=== PATIENT | female | born 2000 | race Caucasian/White ===

== ENCOUNTER 2020-01-22 22:31 | Outpatient (CLI) | payer OTHER ==
[2020-01-22 23:04] LABS: APPEARANCE,URINE SLIGHTLY-CLOUDY; BILIRUBIN,URINE NEGATIVE (NEGATIVE); COLOR,URINE YELLOW; GLUCOSE, URINE NEGATIVE (NEGATIVE); KETONES,URINE NEGATIVE (NEGATIVE); LEUKOCYTE ESTERASE,URINE NEGATIVE (NEGATIVE); NITRITE,URINE NEGATIVE (NEGATIVE); PROTEIN,URINE NEGATIVE (NEGATIVE); URINE SPECIFIC GRAVITY 1.019; UROBILINOGEN,URINE NEGATIVE mg/dL (<2.0)
--- NOTE | 2020-01-22 23:56 | Non Stress Test Report ---
Non Stress Test Datetime Report Generated by CPN: 01/22/2020 23:55 DEMOGRAPHIC EGA NST: 35.3 INDICATION Indication for Study (NST) Other: GA > 32 weeks VITAL SIGNS Temperature - NST: 97.6 Pulse - NST: 127 RESP - NST: 17 NBPSYS NST: 119 NBPDIA NST: 56 URINE RESULTS Urine Protein, NST: Negative Urine Ketones - NST: Negative Urine Glucose - NST: Negative Urine Blood - NST: Negative MONITORING Monitor Explained: Monitor Explained; Test Explained; Patient Verbalized Understanding Time on Monitor: 01/22/2020 22:52 Time off Monitor: 01/22/2020 23:37 NST INTERVENTIONS NST Interventions: PO Hydration; Reposition Patient Physician Notified NST: Dr. Regis BABY A: [id number] BABY A Movement : Present Contraction Frequency : x 1 FHR Baseline : 145 Accelerations : 15X15 Decelerations : None Variability : Moderate 6-25bpm NST Review: Meets Criteria for Reactive NST NST Review and Verified By : B. Ring RN NST Results: Reactive NST REPORT Report Trigger: Send Report
[2020-01-22] MEDS ORDERED: HYDROXYZINE PAMOATE 50 MG CAPSULE PO ONE (23:59)
[2020-01-23 00:16] LABS: URINE AMPHETAMINES SCREEN NEGATIVE; URINE BARBITURATES SCREEN NEGATIVE; URINE BENZODIAZEPINES SCREEN NEGATIVE; URINE COCAINE SCREEN NEGATIVE; URINE MARIJUANA (THC) SCREEN NEGATIVE; URINE METHADONE SCREEN NEGATIVE; URINE PHENCYCLIDINE SCREEN NEGATIVE
== END 2020-01-22 23:45 | disposition home or self-care (01) ==
LOC: LC 22:31
PROVIDERS: ATTEND Obstetrics & Gynecology
DX: O47.1 False labor at or after 37 completed weeks of gestation (principal); Z3A.35 35 weeks gestation of pregnancy
CPT/HCPCS: 59025; 80307; 81001

== ENCOUNTER 2020-02-17 17:57 | Inpatient (IN) | payer OTHER ==
[2020-02-17] MEDS ORDERED: ZOLPIDEM TARTRATE 5 MG TABLET PO PRN (18:02)
[2020-02-17] MEDS ORDERED: RINGERS SOLUTION,LACTATED 300 ML IV ONE (18:02)
[2020-02-17] MEDS ORDERED: DINOPROSTONE 10 MG VAGINAL INSERT.SR PV ONE (18:02)
[2020-02-17] MEDS ORDERED: ACETAMINOPHEN 325 MG TABLET PO PRN (18:02)
[2020-02-17] MEDS ORDERED: RINGERS SOLUTION,LACTATED 1,000 ML IV PRN (18:02)
[2020-02-17] MEDS ORDERED: MAG HYDROX/AL HYDROX/SIMETH SUSP 30 ML UDCUP PO PRN (18:02)
[2020-02-17] MEDS ORDERED: OXYTOCIN/0.9 % SODIUM CHLORIDE 30 UNIT/500 ML RTUINJ IV PRN (18:02)
[2020-02-17 18:57] LABS: ABSOLUTE BASOPHILS # (AUTO) 0.1 10^3/uL (0.0-0.2); ABSOLUTE EOSINOPHILS # (AUTO) 0.1 10^3/uL (0.0-0.6); ABSOLUTE LYMPHOCYTES (AUTO) 1.4 10^3/uL (0.5-4.7); ABSOLUTE MONOCYTES (AUTO) 0.4 10^3/uL (0.1-1.4); ABSOLUTE NEUT (AUTO) 5.6 10^3/uL (1.7-8.2); BASOPHILS % (AUTO) 0.8 % (0-2); HEMATOCRIT 36.2 % (36.0-47.0); HEMOGLOBIN 13.1 g/dL (12.0-15.5); LYMPHOCYTES % (AUTO) 18.2 % (13-45); MEAN CORPUSCULAR VOLUME 86 fl (80-97); MONOCYTES % (AUTO) 4.9 % (3-13); PLATELET COUNT 187 10^3/uL (150-450); RED BLOOD COUNT 4.21 10^6/uL (3.72-5.28); RED CELL DISTRIBUTION WIDTH 13.7 % (11.5-14.0); SEGMENTED NEUTROPHILS % (AUTO) 75.1 % (42-78); TOTAL CELLS COUNTED % (AUTO) 100 %; WHITE BLOOD COUNT 7.4 10^3/uL (4.0-10.5)
[2020-02-17] MEDS ORDERED: DINOPROSTONE 10 MG VAGINAL INSERT.SR ONE (18:57)
[2020-02-17 19:04] LABS: APPEARANCE,URINE CLEAR; BILIRUBIN,URINE NEGATIVE (NEGATIVE); COLOR,URINE YELLOW; GLUCOSE, URINE NEGATIVE (NEGATIVE); KETONES,URINE NEGATIVE (NEGATIVE); LEUKOCYTE ESTERASE,URINE NEGATIVE (NEGATIVE); NITRITE,URINE NEGATIVE (NEGATIVE); PROTEIN,URINE NEGATIVE (NEGATIVE); URINE SPECIFIC GRAVITY 1.005; UROBILINOGEN,URINE NEGATIVE mg/dL (<2.0)
[2020-02-17 19:22] LABS: URINE AMPHETAMINES SCREEN NEGATIVE; URINE BARBITURATES SCREEN NEGATIVE; URINE BENZODIAZEPINES SCREEN NEGATIVE; URINE COCAINE SCREEN NEGATIVE; URINE MARIJUANA (THC) SCREEN NEGATIVE; URINE METHADONE SCREEN NEGATIVE; URINE PHENCYCLIDINE SCREEN NEGATIVE
--- NOTE | 2020-02-18 09:05 | Admission Physical ---
Datetime Report Generated by CPN: 02/18/2020 09:05 CURRENT ADMISSION Chief Complaint: Scheduled Induction of Labor Indication for Induction- Other: Elective IOL brought in last night at 39 wks. Admit Impression : Term, Intrauterine ALLERGIES Medication Allergies: Yes Medication Allergies: Sulfa (Sulfonamide Antibiotics) (02/17/2020) Latex: No Latex Allergies Food Allergies: none Environmental Allergies: none OBSTETRICAL HISTORY EDC: 02/23/2020 00:00 : 1 Para: 0 Term: 0 : 0 SAB: 0 IAB: 0 Ectopic: 0 Livin Cesareans: 0 VBACs: 0 Multiple Births: 0 Gestational Diabetes: No Rh Sensitization: No Incompetent Cervix: No RAYMOND: No Infertility: No ART Treatment: No Uterine Anomaly: No IUGR: No Hx Previous C/S: No Macrosomia: No Hx Loss/Stillborn: No PIH: No Hx : No Placenta Previa/Abruption: No Depression/PP Depression: No PTL/PROM: No Post Hemorrhage: No Current Procedures: Ultrasound; NST Obstetrical History Comments: G1- current Size greater than 97% SEE RECORDS Alcohol: No Marijuana : No Cocaine: No Other Illicit Drugs: No Cigarettes: Never Smoker. [id number] MEDICAL HISTORY Diabetes: No Blood Transfusion: No Pulmonary Disease (Asthma, TB): No Breast Disease: No Hypertension: No Electrician Master Surgery: No Heart Disease: No Hosp/Surgery: No Autoimmune Disorder: No Anesthetic Complications: No Kidney Disease: No Abnormal Pap Smear: No Neuro/Epilepsy: No Psychiatric Disorders: No Other Medical Diseases: No Hepatitis/Liver Disease: No Significant Family History: No Varicosities/Phlebitis: No Trauma/Violence : No Thyroid Dysfunction: No INFECTIOUS HISTORY Gonorrhea: No Genital Herpes: No Chlamydia: No Tuberculosis: No Syphilis: No Hepatitis: No HIV/AIDS Exposure: No Rash or Viral Illness: No HPV: No PHYSICAL EXAM General: Normal HEENT: Normal Neurologic: Normal Thyroid: Normal Heart: Normal Lungs: Normal Breast: Normal Back: Normal Abdomen: Normal Genitourinary Exam: Normal Extremities: Normal DTRs: Normal Pelvic Type: Adequate Vital Signs: Reviewed; Within Normal Limits FETUS A EGA: 39.2 Monitoring: External US FHR- Baseline: 140 Accelerations: 15X15 Decelerations: None Admit Comment: at 39.1 wks, came in last night for cervidil. Elective IOL w/ EFW 4335 gm on 02/13. Pt with hx of 80+ pound weight gain this . RN states cervix remains 1 cm s/p the cervidil, pt comfortable this morning, with rare contraction. GBS+. Discussed pt status with Dr Thomas this morning w/ increased risk factors for shoulder dystocia and needing section for delivery if we proceed w/ the IOL. PLANS FOR LABOR AND DELIVERY Labor and Delivery: None Pain Management: Epidural Feeding Preference: Breast Benefit of Breast Feed Discussed: Yes Circumcision: Yes INFORMED CONSENT Assignment: Millicent Thomas MD Signature: with User ID: Shamar : with User ID: [email or web address]
--- NOTE | 2020-02-18 09:17 | PDOC DISCHARGE SUMMARY ---
Impression - Admit/DC Date/PCP Admission Date/Primary Care Provider: 02/17/20 17:57 Discharge Date: 02/18/20 - 39.1 week IUP, Dr Thomas in room and discussed pts increased risk for shoulder dystocia due to EFW 4335 gm. Risks discussed and reviewed w/ patient and her S.O. - Discharge Diagnosis (1) 39 weeks gestation of Is this a current diagnosis for this admission?: Yes (2) Non-stress test reactive Is this a current diagnosis for this admission?: Yes - Additional Information Resuscitation Status: Full Code Discharge Diet: As Tolerated, Regular Discharge Activity: Activity As Tolerated Home Medications: Vitamin [-U Multiple Vitamin Capsule] 1 tab PO DAILY 01/22/20 History of Present Illiness History of Present Illness: LINDA DIANA is a 19 year old female Physical Exam Vital Signs: Intake & Output 02/17/20 02/18/20 02/19/20 06:59 06:59 06:59 Weight 105.1 kg General appearance: PRESENT: no acute distress Neurological exam: PRESENT: alert, oriented to time Results Laboratory Results: WBC 7.4 10^3/uL (4.0-10.5) 02/17/20 18:42 RBC 4.21 10^6/uL (3.72-5.28) 02/17/20 18:42 Hgb 13.1 g/dL (12.0-15.5) 02/17/20 18:42 Hct 36.2 % (36.0-47.0) 02/17/20 18:42 MCV 86 fl (80-97) 02/17/20 18:42 MCH 31.0 pg (27.0-33.4) 02/17/20 18:42 MCHC 36.0 g/dL (32.0-36.0) 02/17/20 18:42 RDW 13.7 % (11.5-14.0) 02/17/20 18:42 Plt Count 187 10^3/uL (150-450) 02/17/20 18:42 Lymph % (Auto) 18.2 % (13-45) 02/17/20 18:42 [place] % (Auto) 4.9 % (3-13) 02/17/20 18:42 Eos % (Auto) 1.0 % (0-6) 02/17/20 18:42 Baso % (Auto) 0.8 % (0-2) 02/17/20 18:42 Absolute Neuts (auto) 5.6 10^3/uL (1.7-8.2) 02/17/20 18:42 Absolute Lymphs (auto) 1.4 10^3/uL (0.5-4.7) 02/17/20 18:42 Absolute Monos (auto) 0.4 10^3/uL (0.1-1.4) 02/17/20 18:42 Absolute Eos (auto) 0.1 10^3/uL (0.0-0.6) 02/17/20 18:42 Absolute Basos (auto) 0.1 10^3/uL (0.0-0.2) 02/17/20 18:42 Seg Neutrophils % 75.1 % (42-78) 02/17/20 18:42 Urine Color YELLOW 02/17/20 18:07 Urine Appearance CLEAR 02/17/20 18:07 Urine pH 6.0 (5.0-9.0) 02/17/20 18:07 Ur Specific [place] 1.005 02/17/20 18:07 Urine Protein NEGATIVE mg/dL (NEGATIVE) 02/17/20 18:07 Urine Glucose (UA) NEGATIVE mg/dL (NEGATIVE) 02/17/20 18:07 Urine Ketones NEGATIVE mg/dL (NEGATIVE) 02/17/20 18:07 Urine Blood NEGATIVE (NEGATIVE) 02/17/20 18:07 Urine Nitrite NEGATIVE (NEGATIVE) 02/17/20 18:07 Urine Bilirubin NEGATIVE (NEGATIVE) 02/17/20 18:07 Urine Urobilinogen NEGATIVE mg/dL (<2.0) 02/17/20 18:07 Ur Leukocyte Esterase NEGATIVE (NEGATIVE) 02/17/20 18:07 Urine Ascorbic Acid NEGATIVE (NEGATIVE) 02/17/20 18:07 Urine Opiates Screen NEGATIVE 02/17/20 18:07 Urine Methadone Screen NEGATIVE 02/17/20 18:07 Ur Barbiturates Screen NEGATIVE 02/17/20 18:07 Ur Phencyclidine Scrn NEGATIVE 02/17/20 18:07 Ur Amphetamines Screen NEGATIVE 02/17/20 18:07 U Benzodiazepines Scrn NEGATIVE 02/17/20 18:07 Urine Cocaine Screen NEGATIVE 02/17/20 18:07 U Marijuana (THC) Screen NEGATIVE 02/17/20 18:07 Blood Type A NEGATIVE 02/17/20 18:42 Antibody Screen POSITIVE 02/17/20 18:42 Antibody Identification RHOGAM INDUCED ANTI-D 02/17/20 18:42 Plan Plan of Treatment: Pt will follow up at [facility] on Friday for Repeat ultrasound w/ EFW. If EFW is 4800 gm, pt may opt for a Primary section. Will not induce patient today due to increase risks of a shoulder dystocia. Dr Thomas discussed plan of care w/ patient, questions answered and pt verbalized understanding. Time Spent: Greater than 30 Minutes Stroke Is this a Stroke Patient?: No Acute Heart Failure Is this a Heart Failure Patient?: No
--- NOTE | 2020-02-18 09:25 | Non Stress Test Report ---
Non Stress Test Datetime Report Generated by CPN: 02/18/2020 09:24 DEMOGRAPHIC EGA NST: 39.2 MONITORING Monitor Explained: Monitor Explained; Test Explained; Patient Verbalized Understanding Time on Monitor: 02/18/2020 08:37 Time off Monitor: 02/18/2020 09:02 NST Duration: 25 NST INTERVENTIONS NST Interventions: PO Hydration Physician Notified NST: Dr Thomas/N Marquis CNM BABY A: [id number] BABY A Movement : Present Contraction Frequency : rare FHR Baseline : 145 Accelerations : 15X15 Decelerations : None Variability : Moderate 6-25bpm NST Review: Meets Criteria for Reactive NST NST Review and Verified By : B Baidy RN NST Results: Reactive NST COMMENTS NST Comments: providers on unit reviewing FHT strip NST REPORT Report Trigger: Send Report
== END 2020-02-18 09:38 | disposition home or self-care (01) | DRG 833 ==
LOC: LR 17:57
PROVIDERS: ADMIT Obstetrics & Gynecology Gynecology; ATTEND Obstetrics & Gynecology Gynecology
DX: O36.63X0 Maternal care for excessive fetal growth, third trimester, not applicable or unspecified (principal); O99.820 Streptococcus B carrier state complicating pregnancy; O66.0 Obstructed labor due to shoulder dystocia; Z3A.39 39 weeks gestation of pregnancy
CPT/HCPCS: 36415; 80307; 81005; 85025; 86592; 86850; 86870; 86900; 86901; 87635; C9803; J3490

== ENCOUNTER 2020-02-22 05:41 | Inpatient (IN) | payer OTHER ==
[~2020-02-22 05:41] MED LIST: CEFAZOLIN 1 GM/D5W RTU 1 GM/50 ML RTUPB IV PRN
[2020-02-22] MEDS ORDERED: RINGERS SOLUTION,LACTATED 1,000 ML IV PRN ×2 (06:12→08:44)
[2020-02-22] MEDS ORDERED: RINGERS SOLUTION,LACTATED 1,000 ML IV ONE (06:15)
[2020-02-22] MEDS ORDERED: MISOPROSTOL 0.2 MG TABLET ONE (07:20)
[2020-02-22] MEDS ORDERED: OXYTOCIN 10 UNIT/ML VIAL ONE ×2 (07:20→07:50)
[2020-02-22] MEDS ORDERED: METHYLERGONOVINE MALEATE INJ/PF 0.2 MG/1 ML AMPULE ONE (07:20)
[2020-02-22] MEDS ORDERED: ONDANSETRON HCL INJ/PF 4 MG/2 ML SDV ONE (07:50)
[2020-02-22] MEDS ORDERED: OXYTOCIN/0.9 % SODIUM CHLORIDE 30 UNIT/500 ML RTUINJ ONE (07:50)
[2020-02-22] MEDS ORDERED: MIDAZOLAM 2 MG/2 ML INJ ONE (07:50)
[2020-02-22] MEDS ORDERED: MORPHINE SULFATE 10 MG/ML INJ ONE ×2 (07:50→10:33)
[2020-02-22] MEDS ORDERED: CEFAZOLIN 1 GM/D5W RTU 1 GM/50 ML RTUPB IV ONE (08:19)
[2020-02-22] MEDS ORDERED: OXYCODONE-ACETAMINOPHEN 5-325 MG TABLET PO PRN ×3 (08:39→08:44)
[2020-02-22] MEDS ORDERED: DIPHENHYDRAMINE HCL 50 MG/ML VIAL IV PRN (08:39)
[2020-02-22] MEDS ORDERED: MEPERIDINE HCL/PF INJ 25 MG/1 ML DISP.SYRIN IV PRN (08:39)
[2020-02-22] MEDS ORDERED: MORPHINE SULFATE 10 MG/ML INJ IV PRN (08:39)
[2020-02-22] MEDS ORDERED: FENTANYL CITRATE INJ/PF 100 MCG/2 ML AMPUL IV PRN ×3 (08:39)
[2020-02-22] MEDS ORDERED: PROMETHAZINE HCL INJ 25 MG/1 ML VIAL IV PRN ×3 (08:39→08:44)
[2020-02-22] MEDS ORDERED: ACETAMINOPHEN 325 MG TABLET PO PRN (08:44)
[2020-02-22] MEDS ORDERED: DIPH/PERTUSS(ACELL)/TETANUS VAC/PF 0.5 ML SYR (>=10YO) IM PRN (08:44)
[2020-02-22] MEDS ORDERED: MORPHINE SULFATE 10 MG/ML INJ IM PRN (08:44)
[2020-02-22] MEDS ORDERED: SIMETHICONE 80 MG TAB.CHEW PO PRN (08:44)
[2020-02-22] MEDS ORDERED: OXYTOCIN/0.9 % SODIUM CHLORIDE 30 UNIT/500 ML RTUINJ IV PRN (08:44)
[2020-02-22] MEDS ORDERED: ACETAMINOPHEN 1,000 MG/100 ML RTUPB IV PRN (08:44)
[2020-02-22] MEDS ORDERED: MEASLES,MUMPS&RUBELLA VACC/PF 0.5 ML VIAL SUBCUT PRN (08:44)
--- NOTE | 2020-02-22 08:44 | Operative Report ---
Operative Report DATE OF SURGERY: 02/22/20 PREOPERATIVE DIAGNOSIS: IUP at term macrosomia POSTOPERATIVE DIAGNOSIS: Same OPERATION: Primary low transverse delivery of male SURGEON: DAMON CHAN ANESTHESIA: Spinal TISSUE REMOVED OR ALTERED: Placenta ESTIMATED BLOOD LOSS: Less than 1000 cc PROCEDURE: The patient was taken to the operating room where spinal anesthesia was obtained and found to be adequate. She was then prepped and draped in the normal sterile fashion and placed in the dorsal supine position with a leftward tilt. A Pfannenstiel skin incision was then made and carried through to the underlying layers of the fascia with the scalpel. The fascia was incised in the midline and the incision extended laterally with the Blanco scissors. The superior aspect of the fascial incision was then grasped with [place] clamps elevated and the underlying rectus muscles dissected off bluntly. Attention was then turned to the inferior aspect of the fascial incision which in a similar fashion was grasped, tented up with [place]erm[place] clamps, and the rectus muscles dissected off bluntly. The rectus muscles were then in the midline and the peritoneum at the amount identified and entered bluntly. The peritoneal incision was then extended superiorly and inferiorly with good visualization of the bladder. [The bladder blade was inserted and the vesicouterine peritoneum identified grasped with [place] pickups and entered sharply with the Metzenbaum scissors. His incision was then extended laterally with the Metzenbaum scissors and a bladder flap created digitally. The bladder blade was then reinserted and the lower uterine segment incised in a transverse fashion with the scalpel. The uterine incision was then extended bluntly. The bladder blade was removed and the infant's head was delivered from cephalic presentation atraumatically. The nose and mouth were suctioned and the cord doubly clamped and cut. And the infant was handed off to waiting pediatricians. The placenta was then delivered manully and the uterus exteriorized and cleared of all clots and debris. The uterine incision was then repaired with 1-0 Vicryl in a running locked fashion. A second layer of the same suture was used to obtain hemostasis via imbrication of the initial layer. The uterus was returned to the patient's abdomen. The gutters were cleared of all clots and debris. All operative sites were noted to be hemostatic. The fascia was reapproximated with 0 Vicryl in a running fashion from each lateral edge to the midline. The patient tolerated the procedure well. Sponge lap needle and instrument counts are correct -2. 2 g of Ancef were given prior to skin incision. The patient was taken to the recovery area awake and in stable condition.
--- NOTE | 2020-02-22 09:25 | Warning Signs in Babies ---
VOD Warning Signs Datetime Report Generated by [facility]: 02/22/2020 09:24 VOD#608 -Warning Signs in Babies: Needs to be viewed. (01/22/2020 22:37:Rupal Levine RN)
--- NOTE | 2020-02-22 09:26 | Delivery Summary ---
Del Sum A-C Datetime Report Generated by N: 02/22/2020 09:26 DELIVERY PERSONNEL DELIVERY PERSONNEL: [id number] Delivery Doctor:: Lalit Dickson MD SOFA COVER INSPECTOR:: Raz Castañeda CRNA Labor and Delivery Nurse:: Debbie Chaparro RN Cardiology Fellow:: Rupal Levine RN Neonatal Nurse Practitioner:: LICO Ruiz Nursery Nurse:: Isa Grijalva RN Nursery Nurse:: Monica Magana RN Dictating Machine Typist/TRACK MECHANIC: [facility] [place] Dictating Machine Typist/TRACK MECHANIC: Oleg Wheeler CST (Annotations: Data stored by [facility] on behalf of user) Additional Personnel: : Mayra oDrado PARTS ADMINISTRATOR MATERNAL INFORMATION Delivery Anesthesia: Spinal Medications After Delivery: Pitocin 30 Units in 500ml NS/D5W; Pitocin Drip 20 Units/1000ml NSS Delivery QBL: 370 Maternal Complications: None LABOR SUMMARY EDC: 02/23/2020 00:00 No. Babies in Womb: 1 Attempted: No Labor Anesthesia: None LABOR INFORMATION Reason for Induction: Not Applicable Oxytocin: N/A Group B Beta Strep: positive Antibiotics # of Doses: 0 Steroids Given: None Reason Steroids Not Administered: Not Applicable MEMBRANES Membranes Rupture Method: Artificial Rupture of Membranes: 02/22/2020 08:21 Length of Rupture (hr): 0.02 Amniotic Fluid Color: Clear Amniotic Fluid Amount: Moderate Amniotic Fluid Odor: None STAGES OF LABOR Stage 3 hr: 0 Stage 3 min: 1 VAGINAL DELIVERY Episiotomy: None Laceration #1: None Laceration Extension #1: N/A Laceration Repair: Not Applicable CSECTION DELIVERY Primary Indication: Other Other Primary Indication: macrosomia CSection Urgency: Scheduled CSection Incidence: Primary CSection Incision: Lower Uterine Transverse BABY A INFORMATION Infant Delivery Date/Time: 02/22/2020 08:22 Method of Delivery: Nurse Controlled Delivery: No Born in Route : No : N/A Forceps: N/A Vacuum Extraction: N/A Shoulder Dystocia : No PRESENTATION/POSITION BABY A Presentation: Cephalic Cephalic Presentation: Vertex Breech Presentation: N/A PLACENTA INFORMATION BABY A Placenta Delivery Time : 02/22/2020 08:23 Placenta Method of Delivery: Expressed Placenta Status: Delivered SCORES BABY A Heart Rate 1 min: >100 bpm Resp Effort 1 min: Good Cry Reflex Irritability 1 min: Cough or Sneeze or Pulls Away Muscle Tone 1 min: Active Motion Color 1 min: Body Keys, Extremities Blue Resuscitation Effort 1 min: Tactile Stimulation SCORE 1 MIN: 9 Heart Rate 5 min: >100 bpm Resp Effort 5 min: Good Cry Reflex Irritability 5 min: Cough or Sneeze or Pulls Away Muscle Tone 5 min: Active Motion Color 5 min: Body Keys, Extremities Blue Resuscitation Effort 5 min: Tactile Stimulation SCORE 5 MIN: 9 INFORMATION BABY A Gestational Age at Delivery: 39.6 Gestational Status: Full Term- 39- 40.6 Weeks Infant Outcome : Liveborn Condition : Stable Sex: Male IDENTIFICATION BABY A Verification Date/Time: 02/22/2020 08:28 ID Band Number: [id number] Mother's Name Verified: Yes Infant RN Verifying : Gregor Chaparro, RN WEIGHT/LENGTH BABY A Infant Birthweight (gm): 4405 Infant Weight (lb): 9 Weight (oz): 11 Infant Length (in): 20.50 Length (cm): 52.07 CORD INFORMATION BABY A No. Cord Vessels: 3 Nuchal Cord : N/A Cord Blood Taken: Yes-For Eval (Mom's Blood Type - or O+) Infant Suction: Mouth ASSESSMENT BABY A Skin to Skin: Yes BABY B INFORMATION : N/A
--- NOTE | 2020-02-22 09:26 | Birth Certificate Data ---
Cert Data Datetime Report Generated by [facility]: 02/22/2020 09:26 CERTIFICATE DATA 47a. Care: Yes (01/22/2020 22:37:Luz Fink RN) 47b. Date of First Visit: 07/21/2019 00:00 (01/22/2020 22:37:Luz Fink RN) 47c. Date of Last Visit: 02/14/2020 00:00 (01/22/2020 22:37:Mayuri Alfred RN) 47d. Number of Visits: 11 (01/22/2020 22:37:Yovana Gardner RN) 48a. Number of Prev Live Births: 0 (01/22/2020 22:37:Yovana Gardner RN) 48b. Now Livin (01/22/2020 22:37:Yovana Gardner RN) 48c. Live Births Now : 0 (01/22/2020 22:37:QS system process) 48e. Losses: 0 (01/22/2020 22:37:Yovana Gardner RN) RISK FACTORS IN THIS 49a. Diabetes: No (01/22/2020 22:37:Luz Fink RN) 49b. Hypertension: No (01/22/2020 22:37:Luz Fink RN) 49c. Previous Births: 0 (01/22/2020 22:37:Yovana Gardner RN) 49d. Stillborns: No (01/22/2020 22:37:Luz Fnik RN) 49d. IUGR: No (01/22/2020 22:37:Luz Fink RN) 49e. Infertility Treatment: No (01/22/2020 22:37:Luz Fink RN) 49f. Previous Cesareans: 0 (01/22/2020 22:37:Yovana Gardner RN) Mother's Height 50b. Height Inches: 64 (02/22/2020 09:08:QS system process) Mother's Weight 51a. Pre- Weight (lbs): 148 (01/22/2020 22:37:Luz Fink RN) 51b. Weight at Delivery (lbs): 233 (02/22/2020 09:08:QS system process) 52. Dt Last Normal Menses Began: 05/19/2019 00:00 (01/22/2020 22:37:Yovana Gardner RN) Infections Present/Treated 53a. Gonorrhea: No (01/22/2020 22:37:Luz Fink RN) Results this Hospital Visit : Negative (01/22/2020 22:37:Luz Fink RN) 53b. Syphilis: No (01/22/2020 22:37:Luz Fink RN) Results this Hospital Visit: NONREACTIVE (02/17/2020 18:42:QS system process) 53c. Chlamydia: No (01/22/2020 22:37:Luz Fink RN) Results this Hospital Visit: Negative (01/22/2020 22:37:Luz Fink RN) 53d. Hepatitis B: No (01/22/2020 22:37:Luz Fink RN) Results this Hospital Visit: Negative (01/22/2020 22:37:Jenn Valdez RN) 53e. Hepatitis C: Negative (01/22/2020 22:37:Jenn Valdez RN) 53h. Mother Tested for HBsAG: Yes (01/22/2020 22:37:Luz Fink RN) 53i. Date Tested: 07/21/2019 00:00 (01/22/2020 22:37:Luz Fink RN) 53j. Test Result: Negative (01/22/2020 22:37:Jenn Valdez RN) Obstetric Procedures 54a, b, c. Obstetric Procedures: Ultrasound; NST (01/22/2020 22:37:Luz Fink RN) Cigarette Smoking Cigarette Smoking: Never Smoker. [id number] (01/22/2020 22:37:Luz Fink RN) 55a. 3 Months Before Preg - Ci (01/22/2020 22:37:Yovana Gardner RN) 55a. Packs: 0 (01/22/2020 22:37:Yovana Gardner RN) 55b. 1st Trimester of Preg- Ci (01/22/2020 22:37:Yovana Gardner RN) 55b. Packs: 0 (01/22/2020 22:37:Yovana Gardner RN) 55c. 2nd Trimester of Preg- Ci (01/22/2020 22:37:Yovana Gardner RN) 55c. Packs: 0 (01/22/2020 22:37:Yovana Gardner RN) 55d. 3rd Trimester of Preg- Ci (01/22/2020 22:37:Yovana Gardner RN) 55d. Packs: 0 (01/22/2020 22:37:Yovana Gardner RN) Onset of Labor 56a. PROM >12 Hrs: 0.02 (01/22/2020 22:37:QS system process) 57a. Induction of Labor: N/A (01/22/2020 22:37:Rupal Levine RN) 57c. Non-Vertex Presentation A: Vertex (01/22/2020 22:37:Rupal Levine RN) 57d. Steroids - Lung Mat: None (01/22/2020 22:37:Rupal Levine RN) 57d. Steroids - Lung Mat: Not Applicable (01/22/2020 22:37:Rupal Levine RN) 57g. Moderate/Heavy Meconium: Clear (01/22/2020 22:37:Rupal Levine RN) 57h. Intolerance of Labor: Other (01/22/2020 22:37:Rupal Levine RN) : macrosomia (01/22/2020 22:37:Rupal Levine RN) 57i. Epidural/Spinal Anesthesia: None (01/22/2020 22:37:Rupal Levine RN) Method of Delivery 58a. Forceps - Unsuccessful A: N/A (01/22/2020 22:37:Rupal Levine RN) 58b. Vacuum - Unsuccessful A: N/A (01/22/2020 22:37:Rupal Levine RN) 58c. Presentation at 58c. Presentation at - A : Vertex (01/22/2020 22:37:Rupal Levine RN) 58c. Presentation at - A : N/A (01/22/2020 22:37:Rupal Levine RN) 58c. Presentation at - A : Cephalic (02/18/2020 08:45:Mayuri Alfred RN) Final Route and Method of Del 58d. Baby A Route/Delivery: (01/22/2020 22:37:LICO Tay) 58e. Trial of Labor Attempted: No (01/22/2020 22:37:Rupal Levine RN) 58e. Trial of Labor Attempted A: N/A (01/22/2020 22:37:Rupal Levine RN) 58e. Trial of Labor Attempted B: N/A (01/22/2020 22:37:Rupal Levine RN) Maternal Morbidity 59b. 3rd or 4th Degree Lacs: None (01/22/2020 22:37:Rupal Chelita Levine, RN) Birthweight Baby A: 4405 (01/22/2020 22:37:Rupal Chelita Levine, RN) 60a. Pounds : 9 (01/22/2020 22:37:QS system process) 60b. Ounces: 11 (01/22/2020 22:37:QS system process) 61. GA at Delivery Baby A: 39.6 (01/22/2020 22:37:PAULINE TayP) : Full Term- 39- 40.6 Weeks (01/22/2020 22:37:QS system process) 62a. 5 Minute Baby A: 9 (01/22/2020 22:37:QS system process)
[2020-02-22] MEDS ORDERED: PRENATAL VITAMIN W DHA CAPSULE PO SCH (10:00)
[2020-02-22] MEDS ORDERED: ACETAMINOPHEN 1,000 MG/100 ML RTUPB IV ONE (10:01)
[2020-02-22] MEDS ORDERED: PROMETHAZINE HCL INJ 25 MG/1 ML VIAL ONE (10:32)
[2020-02-22] MEDS: DOCUSATE SODIUM 100 MG CAPSULE PO SCH ×2 (14:15→17:16)
[2020-02-22] MEDS: KETOROLAC TROMETHAMINE INJ/PF 30 MG/1 ML SDV IV SCH ×2 (14:15→21:40)
[2020-02-22] MEDS: PRENATAL VITAMIN W DHA CAPSULE PO SCH (14:20)
[2020-02-23] MEDS: KETOROLAC TROMETHAMINE INJ/PF 30 MG/1 ML SDV IV SCH (05:37)
[2020-02-23 07:39] LABS: HEMATOCRIT 33.5 % (36.0-47.0); HEMOGLOBIN 11.7 g/dL (12.0-15.5); MEAN CORPUSCULAR HEMOGLOBIN 30.4 pg (27.0-33.4); MEAN CORPUSCULAR VOLUME 87 fl (80-97); PLATELET COUNT 160 10^3/uL (150-450); RED BLOOD COUNT 3.86 10^6/uL (3.72-5.28); RED CELL DISTRIBUTION WIDTH 13.7 % (11.5-14.0); WHITE BLOOD COUNT 8.4 10^3/uL (4.0-10.5)
[2020-02-23] MEDS ORDERED: INFLUENZA QUAD (6MOS+) 2020-21 VAC 0.5 ML SYR IM ONE (08:00)
[2020-02-23] MEDS: DOCUSATE SODIUM 100 MG CAPSULE PO SCH ×2 (10:08→18:56)
[2020-02-23] MEDS: PRENATAL VITAMIN W DHA CAPSULE PO SCH (10:09)
--- NOTE | 2020-02-23 12:03 | PDOC PROGRESS REPORT ---
Subjective-OB Progress Note for:: 02/23/20 - POD #2, doing well, uob voiding, A neg/ Baby is A positive, needs Rhogam. Primary section for suspected macrosomia Physical Exam (OB) Vital Signs: Temp Pulse Resp BP Pulse Ox 97.7 F 99 16 113/65 97 02/23/20 11:26 02/23/20 11:26 02/23/20 11:26 02/23/20 11:26 02/23/20 11:26 Intake & Output 02/22/20 02/23/20 02/24/20 06:59 06:59 06:59 Intake Total 2150 200 Output Total 1950 Balance 200 200 Weight 105.687 kg - General General Appearance: Appears well, Alert In distress: None - PIH/Pre-Eclampsia Clonus: Negative Headache: Absent Epigastric Pain: No Visual Changes: No - Dressing Removed: No Incision: Dressing - dressing removed, incision clean/dry/ intact, Well Approximated Closure Type: Surgical Glue - Maternal Morbidity 59. Maternal Morbidity (serious complications experinced by the mother associated with labor and delivery: None of the above - Lochia Lochia Amount: Small 10-25 ml Lochia Color: Rubra/Red - Abdomen Description: Tender, Soft Hernia Present: No Fundal Description: Firm, Midline Fundal Height: u/u - u/2 - Respiratory Respiratory Status: No respiratory distress Breath sounds: Clear - Cardiovascular Rhythm: Regular Heart Sounds: Normal auscultation - Abdominal Distension: No distension Tenderness: Nontender Abdominal Notes: +bowel sounds - Genitourinary Genitourinary Note: voiding - Extremities Upper extremity: Normal inspection Lower extremities: Normal inspection - Neurological Cognition: Normal Orientation: AAOx4 - Psychological Associated symptoms: Normal affect - Skin Skin Temperature: Warm Skin Moisture: Dry Objective-Diagnostic Laboratory: 02/23/20 06:55 02/23/20 02/23/20 06:55 09:35 WBC 8.4 RBC 3.86 Hgb 11.7 L Hct 33.5 L MCV 87 MCH 30.4 MCHC 35.0 RDW 13.7 Plt Count 160 Blood Type A NEGATIVE Assessment and Plan(PN) - Assessment and Plan (1) Status post primary low transverse section Is this a current diagnosis for this admission?: Yes (2) Normal course Is this a current diagnosis for this admission?: Yes (3) 39 weeks gestation of Is this a current diagnosis for this admission?: Yes Plan:: ambulation encouraged, Routine PP and Post Op orders - Time Spent with Patient Time with patient: Less than 15 minutes Medications reviewed and adjusted accordingly: Yes - Disposition Anticipated Discharge Disposition: Home, Self Care Anticipated Discharge Timeframe: within 48 hours
[2020-02-23] MEDS: IBUPROFEN 800 MG TABLET PO SCH ×3 (14:42→23:58)
[2020-02-24] MEDS: IBUPROFEN 800 MG TABLET PO SCH ×2 (06:18→14:20)
--- NOTE | 2020-02-24 08:53 | PDOC PROGRESS REPORT ---
Subjective-OB Progress Note for:: 02/24/20 Subjective: Ready for discharge. Physical Exam (OB) Vital Signs: Temp Pulse Resp BP Pulse Ox 97.9 F 105 H 16 139/60 H 100 02/24/20 07:41 02/24/20 07:41 02/24/20 07:41 02/24/20 07:41 02/24/20 07:41 Intake & Output 02/23/20 02/24/20 02/25/20 06:59 06:59 06:59 Intake Total 3150 2372 Output Total 1950 Balance 1200 2372 - PIH/Pre-Eclampsia Clonus: Negative Headache: Absent Epigastric Pain: No Visual Changes: No - Dressing Removed: Yes Incision: Well Approximated Closure Type: [place] - Maternal Morbidity 59. Maternal Morbidity (serious complications experinced by the mother associated with labor and delivery: None of the above - Lochia Lochia Amount: Scant < 10 ml Lochia Color: Rubra/Red - Abdomen Description: Soft, Round Hernia Present: No Bowel Sounds: Normoactive Flatus Presence: Present Stool: No Fundal Description: Firm, Midline Fundal Height: u/u - u/2 Objective-Diagnostic Laboratory: 02/23/20 06:55 02/23/20 09:35 Blood Type A NEGATIVE Assessment and Plan(PN) - Time Spent with Patient Time with patient: 15-25 minutes Medications reviewed and adjusted accordingly: Yes - Disposition Anticipated Discharge Disposition: Home, Self Care Anticipated Discharge Timeframe: within 24 hours
--- NOTE | 2020-02-24 09:02 | PDOC DISCHARGE SUMMARY ---
Impression - Admit/DC Date/PCP Admission Date/Primary Care Provider: 02/22/20 05:41 Discharge Date: 02/24/20 - Discharge Diagnosis (1) 39 weeks gestation of Is this a current diagnosis for this admission?: Yes (2) Macrosomia Is this a current diagnosis for this admission?: Yes (3) Normal course Is this a current diagnosis for this admission?: Yes (4) Positive GBS test Is this a current diagnosis for this admission?: Yes (5) Status post primary low transverse section Is this a current diagnosis for this admission?: Yes - Additional Information Resuscitation Status: Full Code Discharge Diet: Regular Discharge Activity: Activity As Tolerated, Balance Activity w/Rest, No Lifting Over 10 Pounds, No Lifting/Push/Pulling, Pelvic Rest, Slowly Increase Activity, No tub bath Referrals: MARCEL CASTILLO MD [ACTIVE PROVISIONAL STAFF] - Prescriptions: Oxycodone HCl/Acetaminophen [Percocet 5-325 mg Tablet] 2 tab PO Q4HP PRN #20 tablet PRN Reason: Docusate Sodium [Colace 100 mg Capsule] 100 mg PO BID #30 capsule Ibuprofen [Motrin 800 mg Tablet] 800 mg PO Q6 #30 tablet Home Medications: Vitamin [-U Multiple Vitamin Capsule] 1 tab PO DAILY 01/22/20 Docusate Sodium [Colace 100 mg Capsule] 100 mg PO BID #30 capsule 02/24/20 Ibuprofen [Motrin 800 mg Tablet] 800 mg PO Q6 #30 tablet 02/24/20 Oxycodone HCl/Acetaminophen [Percocet 5-325 mg Tablet] 2 tab PO Q4HP PRN #20 tablet 02/24/20 HPI Gestational Age: 39 wks Reason(s) for Admission: Ceasarean Section-Primary Procedures: Ultrasound Intrapartum Procedure(s): : Low Cervical, Transverse Hospital Course 59. Maternal Morbidity (serious complications experinced by the mother associated with labor and delivery: None of the above Results Laboratory Results: WBC 8.4 10^3/uL (4.0-10.5) 02/23/20 06:55 RBC 3.86 10^6/uL (3.72-5.28) 02/23/20 06:55 Hgb 11.7 g/dL (12.0-15.5) L 02/23/20 06:55 Hct 33.5 % (36.0-47.0) L 02/23/20 06:55 MCV 87 fl (80-97) 02/23/20 06:55 MCH 30.4 pg (27.0-33.4) 02/23/20 06:55 MCHC 35.0 g/dL (32.0-36.0) 02/23/20 06:55 RDW 13.7 % (11.5-14.0) 02/23/20 06:55 Plt Count 160 10^3/uL (150-450) 02/23/20 06:55 Blood Type A NEGATIVE 02/23/20 09:35 Antibody Screen NEGATIVE 02/22/20 06:50 Screen NEGATIVE 02/23/20 09:35 Plan Time Spent: Less than 30 Minutes
[2020-02-24] MEDS: DOCUSATE SODIUM 100 MG CAPSULE PO SCH (09:20)
[2020-02-24] MEDS: PRENATAL VITAMIN W DHA CAPSULE PO SCH (11:47)
[2020-02-24 16:23] VITALS: BP 142/75
--- NOTE | 2020-02-25 12:19 | Admission Physical ---
Datetime Report Generated by CPN: 02/25/2020 12:19 CURRENT ADMISSION Chief Complaint: Scheduled Induction of Labor Indication for Induction- Other: Elective IOL brought in last night at 39 wks. Admit Impression : Term, Intrauterine ALLERGIES Medication Allergies: Yes Medication Allergies: Sulfa (Sulfonamide Antibiotics) (02/17/2020) Medication Allergies: Sulfa (Sulfonamide Antibiotics) (01/22/2020) Latex: Unknown Food Allergies: none Environmental Allergies: none OBSTETRICAL HISTORY EDC: 02/23/2020 00:00 : 1 Para: 0 Term: 0 : 0 SAB: 0 IAB: 0 Ectopic: 0 Livin Cesareans: 0 VBACs: 0 Multiple Births: 0 Gestational Diabetes: No Rh Sensitization: No Incompetent Cervix: No RAYMOND: No Infertility: No ART Treatment: No Uterine Anomaly: No IUGR: No Hx Previous C/S: No Macrosomia: No Hx Loss/Stillborn: No PIH: No Hx : No Placenta Previa/Abruption: No Depression/PP Depression: No PTL/PROM: No Post Hemorrhage: No Current Procedures: Ultrasound; NST Obstetrical History Comments: G1- current Size greater than 97% SEE RECORDS Alcohol: No Marijuana : No Cocaine: No Other Illicit Drugs: No Cigarettes: Never Smoker. 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 Surgery: No Heart Disease: No Hosp/Surgery: No Autoimmune Disorder: No Anesthetic Complications: No Kidney Disease: No Abnormal Pap Smear: No Neuro/Epilepsy: No Psychiatric Disorders: No Other Medical Diseases: No Hepatitis/Liver Disease: No Significant Family History: No Varicosities/Phlebitis: No Trauma/Violence : No Thyroid Dysfunction: No INFECTIOUS HISTORY Gonorrhea: No Genital Herpes: No Chlamydia: No Tuberculosis: No Syphilis: No Hepatitis: No HIV/AIDS Exposure: No Rash or Viral Illness: No HPV: No PHYSICAL EXAM General: Normal HEENT: Normal Neurologic: Normal Thyroid: Normal Heart: Normal Lungs: Normal Breast: Normal Back: Normal Abdomen: Normal Genitourinary Exam: Normal Extremities: Normal DTRs: Normal Pelvic Type: Adequate Vital Signs: Reviewed; Within Normal Limits FETUS A EGA: 39.2 Monitoring: External US FHR- Baseline: 140 Accelerations: 15X15 Decelerations: None Admit Comment: at 39.1 wks, came in last night for cervidil. Elective IOL w/ EFW 4335 gm on 02/13. Pt with hx of 80+ pound weight gain this . RN states cervix remains 1 cm s/p the cervidil, pt comfortable this morning, with rare contraction. GBS+. Discussed pt status with Dr Thomas this morning w/ increased risk factors for shoulder dystocia and needing section for delivery if we proceed w/ the IOL. PLANS FOR LABOR AND DELIVERY Labor and Delivery: None Pain Management: Epidural Feeding Preference: Breast Benefit of Breast Feed Discussed: Yes Circumcision: Yes INFORMED CONSENT Assignment: Millicent Thomas MD Signature: with User ID: [email or web address] : with User ID: [email or web address]
== END 2020-02-24 17:50 | disposition home or self-care (01) | DRG 788 ==
LOC: 2S 05:41
PROVIDERS: ADMIT Obstetrics & Gynecology Gynecology; ATTEND Obstetrics & Gynecology Gynecology
PROC: 10D00Z1 Extraction of Products of Conception, Low, Open Approach (ICD-10-PCS; principal; 2020-02-22)
PROC: 3E0234Z Introduction of Serum, Toxoid and Vaccine into Muscle, Percutaneous Approach (ICD-10-PCS; 2020-02-24)
DX: O36.63X0 Maternal care for excessive fetal growth, third trimester, not applicable or unspecified (principal); O99.824 Streptococcus B carrier state complicating childbirth; O26.893 Other specified pregnancy related conditions, third trimester; Z3A.39 39 weeks gestation of pregnancy; Z67.11 Type A blood, Rh negative; Z37.0 Single live birth
CPT/HCPCS: 1961; 36415; 85027; 85461; 86850; 86900; 86901; 94760; 94799; J0131; J0690; J1885; J2210; J2250; J2270; J2405; J2550; J2590; J2790; J7120

== ENCOUNTER 2020-02-27 11:00 | Emergency (ER) | payer OTHER ==
[2020-02-27 11:09] VITALS: BP 132/55
--- NOTE | 2020-02-27 11:37 | ER Document Report ---
ED Wound - General Chief Complaint: Incision Drainage Stated Complaint: WOUND CHECK Time Seen by Provider: 02/27/20 11:30 Notes: CHIEF COMPLAINT: Wound check post HPI: 19-year-old female 6 days post presenting for odor and smell from her wound area. No fever. Was concerned there might be some infection. Did not call her HOST/HOSTESS prior to coming to the emergency department today. ROS: See HPI - all other systems were reviewed and are otherwise negative Constitutional: no fever GI: no vomiting, no diarrhea, no abdominal pain : no dysuria Integumentary: + rash Allergy: no hives MEDICATIONS: I agree with the patient medications as charted by the RN. ALLERGIES: I agree with the allergies as charted by the RN. PAST MEDICAL HISTORY/PAST SURGICAL HISTORY: Reviewed and agree as charted by RN. SOCIAL HISTORY: Reviewed and agree as charted by RN. FAMILY HISTORY: No significant familial comorbid conditions directly related to patient complaint EXAM: Reviewed vital signs as charted by RN. CONSTITUTIONAL: Alert and oriented and responds appropriately to questions. Well-appearing; well-nourished HEAD: Normocephalic; atraumatic EYES: Conjunctivae clear, sclerae non-icteric ENT: normal nose; no rhinorrhea; moist mucous membranes NECK: Supple without meningismus CARD: symmetric distal pulses RESP: Normal chest excursion without splinting or tachypnea ABD/GI: Normal bowel sounds; non-distended; soft, non-tender, no rebound, no guarding BACK: The back appears normal EXT: Normal ROM in all joints; no cyanosis, no effusions, no edema SKIN: Normal color for age and race; warm; dry; good turgor; the incision appears relatively intact. There are 2 small open areas on the lateral ends measuring less than a centimeter each. Small amount of serous discharge is noted. No significant erythema surrounding the wound area. NEURO: Moves all extremities equally; Motor and sensory function intact PSYCH: The patient's mood and manner are appropriate. Grooming and personal hygiene are appropriate. MDM: 19-year-old female presenting for possible infection to surgical site. Had 6 days ago. She has 2 open areas that are slightly draining some serous material, she does not have any induration or fluctuance suggesting a deeper abscess. Will place patient on a very short course of Keflex 5 days she has an appointment in 2 days with her THREAD INSPECTOR for recheck - Related Data Allergies/Adverse Reactions: Sulfa (Sulfonamide Antibiotics) Allergy (Verified 02/27/20 11:18) Past Medical History - Social History Smoking Status: Unknown if Ever Smoked Family History: Reviewed & Not Pertinent Psychiatric Medical History: Denies: Hx Depression Traumatic Medical History: Reports: Hx Fractures - left forearm 2007 Past Surgical History: Denies: Hx Section Physical Exam - Vital signs Vitals: Temp Pulse Resp BP Pulse Ox 97.8 F 94 18 132/55 H 98 02/27/20 11:08 02/27/20 11:08 02/27/20 11:08 02/27/20 11:08 02/27/20 11:08 Course - Vital Signs Vital signs: Temp Pulse Resp BP Pulse Ox 97.8 F 94 18 132/55 H 98 02/27/20 11:08 02/27/20 11:08 02/27/20 11:08 02/27/20 11:08 02/27/20 11:08 Discharge - Discharge Clinical Impression: Wound infection after surgery Condition: Stable Disposition: HOME, SELF-CARE Additional Instructions: Continue to change her dressings as needed. Take the Keflex as prescribed, follow-up on Friday with your HOST/HOSTESS for reevaluation Prescriptions: Cephalexin Monohydrate [Keflex 500 mg Capsule] 500 mg PO Q6H #20 capsule Referrals: DAMON CHAN MD [ACTIVE STAFF] - Follow up as needed
== END 2020-02-27 11:35 | disposition home or self-care (01) ==
LOC: ER 11:00
DX: O86.00 Infection of obstetric surgical wound, unspecified (principal)
CPT/HCPCS: 99283